=== PATIENT | female | born 1940 | race Caucasian/White ===

== ENCOUNTER → 2016-12-30 | Outpatient (CLI) | payer MEDICARE, BC ==
[~2016-12-30] MED LIST: ASPIRIN81 M2 PO; CELEXA20 MG PO; LEXAPRO; LIPITOR; LIPITOR40 MG PO; METOPROLOL TAR25 MG PO; PERCOCET5/325 PO; PRENATAL1 TA1 PO
--- NOTE | ~2016-12-30 | US24 ---
[facility] A Service of [facility] & [facility] RADIOLOGY TEXT RESULTS PATIENT: SALOMON SANCHEZ LOCATION: [facility] : 38 UNIT #: [id number] AGE: [address]: Glendy Barrios MD SEX: F ORDER DR: [id number] [facility] [address] [place], [place] [address] [id number] O MR#: [id number] Acc #: [id number] NAME: SALOMON SANCHEZ. : 1940 SEX: F STUDY DATE/TIME: 12/30/2016 9:33 UNIT: [facility] ROOM: STUDY DESCRIPTION: US Breast Unilateral Attending Physician: Glendy Barrios M.D. Referring Physician: Glendy Barrios M.D. Ordering Physician: Glendy Barrios M.D. Primary Care Physician: Glendy Barrios M.D. MEDICAL IMAGING REPORT This report is preliminary unless electronic signature is present EXAM Right breast ultrasound INDICATION Follow up right breast cystic lesion. PRIOR ULTRASOUND 06/19/2016. FINDINGS Ultrasound of the retroareolar region today does not show a cyst. The cyst that was noted previously was aspirated on 06/25/2016. IMPRESSION Today's retroareolar ultrasound of the right breast does not show any remaining cyst. Routine mammographic screening in June 2017 is recommended. BIRADS: 1 Negative Dictated by... Aba Jj M.D. THIS IS AN ELECTRONICALLY VERIFIED REPORT Aba Jj M.D. at 12/30/2016 1:22 PM SONIA/jesus TD: 12/30/2016 12:01 JOB #: [id number] MEDICAL IMAGING REPORT Page 1 of 1 COPY
--- NOTE | ~2016-12-30 | BD1 ---
[facility] A Service of [facility] & [facility] RADIOLOGY TEXT RESULTS PATIENT: SALOMON SANCHEZ LOCATION: [facility] : 38 UNIT #: [id number] AGE: [address]: Glendy Barrios MD SEX: F ORDER DR: [id number] [facility] [address] [place], [place] [address] [id number] O MR#: [id number] Acc #: [id number] NAME: SALOMON SANCHEZ : 1940 SEX: F STUDY DATE/TIME: 12/30/2016 9:59 UNIT: [facility] ROOM: STUDY DESCRIPTION: BD Dexa Bone Dens 1+ Site Attending Physician: Glendy Barrios M.D. Referring Physician: Glendy Barrios M.D. Ordering Physician: Glendy Barrios M.D. Primary Care Physician: Glendy Barrios M.D. MEDICAL IMAGING REPORT This report is preliminary unless electronic signature is present EXAM DEXA scan 12/30/2016 HISTORY Status post menopause with no hormone replacement therapy. Osteopenia. Family history breast carcinoma in sister. Smoking history for 35 years. Fractured wrist in last 10 years. FINDINGS Bone mineral density in the lumbar spine from L1-L4 is 0.838 cm2 which is 1.9 standard deviations below the mean when compared to the young adult reference population which is characteristic of osteopenia. This is 0.7 standard deviations above the mean when compared to the age-matched population. Compared with 01/11/2013 there has been an increase in bone mineral density in the lumbar spine of 0.8%. Bone mineral density in the left femoral neck was 0.612 g/cm2 which is 2.1 standard deviations below the mean when compared to the young adult reference population which is characteristic of osteopenia. This is 0.1 standard deviations above the mean when compared to the age-matched population. Compared with 01/11/2013 there has been an increase in bone mineral density in the left hip of 3.5%. IMPRESSION Bone mineral density in the lumbar spine and the left hip characteristic of osteopenia. Compared with 01/11/2013 there has been an increase in bone mineral density in the lumbar spine and the left hip. Dictated by... Braydon Swain M.D. THIS IS AN ELECTRONICALLY VERIFIED REPORT [facility] A Service of [facility] & [facility] RADIOLOGY TEXT RESULTS PATIENT: SALOMON SANCHEZ LOCATION: [facility] : 38 UNIT #: [id number] AGE: [address]: Glendy Barrios MD SEX: F ORDER DR: Braydon Swain M.D. at 01/01/2017 8:21 AM MAYI/melisa TD: 12/30/2016 13:50 JOB #: [id number] MEDICAL IMAGING REPORT Page 1 of 1 COPY
== END | disposition home or self-care (01) ==
LOC: CWCC 12-24 09:30
DX: R92.8 Other abnormal and inconclusive findings on diagnostic imaging of breast (principal); Z13.820 Encounter for screening for osteoporosis; M85.80 Other specified disorders of bone density and structure, unspecified site; M85.9 Disorder of bone density and structure, unspecified
CPT/HCPCS: 76641; 77080

== ENCOUNTER → 2017-02-16 | Outpatient (CLI) | payer MEDICARE, BC ==
--- NOTE | ~2017-02-16 | US98 ---
[facility] A Service of [facility] RADIOLOGY TEXT RESULTS PATIENT: SALOMON SANCHEZ LOCATION: [facility] : 38 UNIT #: [id number] AGE: [address]: Glendy Barrios MD SEX: F ORDER DR: [id number] [facility] [address] [place], [place] [address] [id number] O MR#: [id number] Acc #: [id number] NAME: SALOMON SANCHEZ. : 1940 SEX: F STUDY DATE/TIME: 02/16/2017 10:47 UNIT: [facility] ROOM: STUDY DESCRIPTION: US Pelvic Non-OB Complete Attending Physician: Glendy Barrios M.D. Referring Physician: Glendy Barrios M.D. Ordering Physician: Glendy Barrios M.D. Primary Care Physician: Glendy Barrios M.D. MEDICAL IMAGING REPORT This report is preliminary unless electronic signature is present EXAM Pelvic ultrasound. INDICATIONS There is diffuse pelvic pain and cramping for 2 weeks. TECHNIQUE Lewis-scale color Doppler spectral Doppler waveform analysis was performed through the pelvis both transabdominally and transvaginally. FINDINGS In some areas, the patient's endometrium appears abnormally thickened, measuring up to about 1.9 cm while in other areas it only measures about 4 mm in thickness. Certainly it appears heterogeneous. Possibility that this reflects a fibroid versus endometrial hyperplasia or endometrial polyp should be considered. Endometrial malignancy certainly cannot be excluded on the basis of this examination. Neither ovary can be seen on either transabdominal or transvaginal imaging. IMPRESSION Abnormal appearance of the patient's endometrium, which is heterogeneous and may be focally thickened measuring up to 1.9 cm. Endometrial hyperplasia and endometrial polyp would certainly be in the differential. Submucosal fibroid would be another consideration. Certainly the possibility of endometrial malignancy cannot be excluded in this 76-year-old woman. Gynecologic consultation is recommended. MRI could also be considered for additional evaluation with of endometrium. Dictated by... Anuja Higuera M.D. THIS IS AN ELECTRONICALLY VERIFIED REPORT Anuja Higuera M.D. at 02/17/2017 5:34 PM [facility]. [facility] A Service of [facility] & [facility] RADIOLOGY TEXT RESULTS PATIENT: SALOMON SANCHEZ [id number] 38 UNIT #: [id number] AGE: [address]: Glendy Barrios MD SEX: F ORDER DR: NEYMAR/juan TD: 02/17/2017 10:09 JOB #: [id number] MEDICAL IMAGING REPORT Page 1 of 1 COPY
== END | disposition home or self-care (01) ==
LOC: CWCC 09:53
DX: R19.00 Intra-abdominal and pelvic swelling, mass and lump, unspecified site (principal); R93.8 Abnormal findings on diagnostic imaging of other specified body structures
CPT/HCPCS: 76830; 76856